=== PATIENT | male | born 1980 | race African-American/Black ===

== ENCOUNTER 2017-06-19 09:47 | Inpatient (IN) | payer OTHER ==
[~2017-06-19] VITALS: Ht 170.2 cm; Wt 90.9 kg
[2017-06-19 10:26] LABS: CHLORIDE 83 mEq/L (99-109); POTASSIUM 2.5 mEq/L (3.7-5.4); SODIUM 130 mEq/L (136-147); WHITE BLOOD COUNT 32.7 K/uL (4.1-10.2)
[2017-06-19 10:28] LABS: GLUCOSE 99 mg/dL (70-99)
[2017-06-19 10:29] LABS: ANION GAP 20 MEQ/L (2-14)
[2017-06-19 10:31] LABS: ALKALINE PHOSPHATASE 99 IU/L (3-129)
[2017-06-19 10:32] LABS: GFR ESTIMATE (CALCULATED) 6 mL/min/
[2017-06-19 10:35] LABS: UREA NITROGEN (BUN) 103 mg/dL (9-23)
[2017-06-19 10:39] LABS: TROP-I INTERPRETATION NEGATIVE; TROPONIN-I 0.15 ng/mL (0.0-0.30)
[2017-06-19 10:57] LABS: HEMATOCRIT 25.7 % (38.0-50.0); MCH 32.9 PG (29.0-34.0); MCHC 37.7 G/DL (30.0-36.0); MCV 87.1 FL (86-99); MEAN PLAT.VOLUME 12.2 uM^3 (9.0-12.4); NRBC (%) 0.4 /100 WBC (0-0); PLATELET COUNT 207 K/uL (156-360); RBC DIS.WIDTH-CV 14.8 % (11.8-14.6); RBC DIS.WIDTH-SD 46.5 % (39-53); RED BLOOD COUNT 2.95 M/uL (4.00-5.50)
[2017-06-19 11:03] LABS: ANISOCYTOSIS 2+; BASOPHIL COUNT 0.2 K/uL (0-0.1); EOSINOPHIL (%) 0.3 % (0-5); EOSINOPHIL COUNT 0.1 K/uL (0-0.3); IMM.RETIC FRACTION 38.6 % (3-19); IMMATURE GRANULOCYTE COUNT 0.3 K/uL; INSTRUMENT ABS NEUTROPHIL CT 27.2 K/uL; LYMPHOCYTE COUNT 2.6 K/uL (1.0-2.8); MACROCYTES 2+; MONOCYTE (%) 7.2 % (3-12); MONOCYTE COUNT 2.4 K/uL (0-0.8); NEUTROPHIL (%) 82.9 % (45-76); NEUTROPHIL COUNT 27.2 K/uL (1.8-6.4); POLYCHROMASIA 3+; RETIC HGB EQUIVALENT 39.2 (28-36); RETICULOCYTE COUNT 11.1 % (0.5-1.8); SCHISTOCYTES 1+; STOMATOCYTES 1+; TARGET CELLS 2+
[2017-06-19 11:21] LABS: CREATINE KINASE 168 IU/L (1-294)
[2017-06-19 12:13] LABS: AMPHETAMINE NEGATIVE (500 ng/mL); BARBITURATES NEGATIVE (200 ng/mL); BENZODIAZEPINES NEGATIVE (150 ng/mL); COCAINE NEGATIVE (150 ng/mL); INTERNAL CONTROLS VALID? YES; METHADONE NEGATIVE (200 ng/mL); METHAMPHETAMINE NEGATIVE (500 ng/mL); OPIATES (MORPHINE) NEGATIVE (100 ng/mL); OXYCODONE NEGATIVE (100 ng/mL); PHENCYCLIDINE NEGATIVE (25 ng/mL); PROPOXYPHENE NEGATIVE (300 ng/mL); THC CANNABINOIDS NEGATIVE (50 ng/mL); TRICYCLIC ANTIDEPRESSANTS NEGATIVE (300 ng/mL)
[2017-06-19 13:21] LABS: URIC ACID 13.5 mg/dL (3.1-9.2)
[2017-06-19 14:15] LABS: ADD MIUA? YES; BILIRUBIN NEGATIVE; BLOOD MODERATE; COLOR YELLOW ((YELLOW)); GLUCOSE (STRIP) 50; KETONES NEGATIVE; LEUKOCYTES NEGATIVE; NITRITE NEGATIVE; PROTEIN (STRIP) >=500; UROBILINOGEN 0.2 MG/DL (0.2-1.0)
[2017-06-19 14:28] LABS: BACTERIA NONE SEEN /HPF; EPITHELIAL CELLS NONE SEEN /HPF; MUCUS NONE SEEN /LPF; RED BLOOD CELLS 0-5 /HPF (0-5); WHITE BLOOD CELLS 0-5 /HPF (0-5)
[2017-06-19 14:29] LABS: AMORPHOUS URATES CRYSTALS 1+
[2017-06-19 14:50] LABS: UR CREATININE CONCENTRATION 73.5 MG/DL
[2017-06-19 16:43] LABS: TROP-I INTERPRETATION NEGATIVE; TROPONIN-I 0.14 ng/mL (0.0-0.30)
[2017-06-19 19:00] VITALS: BP 136/82
[2017-06-19 20:01] LABS: ANION GAP 18 MEQ/L (2-14); CHLORIDE 80 MEQ/L (99-109); POTASSIUM 2.6 MEQ/L (3.7-5.4); SAMPLE HEMOLYSIS CHECK 0; SAMPLE ICTERIC CHECK 0; SAMPLE LIPEMIA CHECK 0; SODIUM 126 MEQ/L (136-147)
[2017-06-19 20:11] LABS: GFR ESTIMATE (CALCULATED) 6 mL/min/
[2017-06-19 20:12] LABS: GLUCOSE 171 mg/dL (70-99); UREA NITROGEN (BUN) 102 mg/dL (9-23)
[2017-06-19 22:12] LABS: TROP-I INTERPRETATION NEGATIVE; TROPONIN-I 0.12 ng/mL (0.0-0.30)
[2017-06-20 00:30] VITALS: BP 132/81
[2017-06-20 03:20] VITALS: BP 138/82
[2017-06-20 05:31] LABS: CHLORIDE 83 mEq/L (99-109); POTASSIUM 2.9 mEq/L (3.7-5.4); SODIUM 126 mEq/L (136-147)
[2017-06-20 05:32] LABS: MAGNESIUM 2.8 mg/dL (1.3-2.7)
[2017-06-20 05:35] LABS: ANION GAP 20 MEQ/L (2-14)
[2017-06-20 05:37] LABS: GFR ESTIMATE (CALCULATED) 5 mL/min/
[2017-06-20 05:40] LABS: GLUCOSE 104 mg/dL (70-99); UREA NITROGEN (BUN) 102 mg/dL (9-23)
[2017-06-20 06:05] LABS: BASOPHIL COUNT 0.2 K/uL (0-0.1); EOSINOPHIL (%) 2.8 % (0-5); EOSINOPHIL COUNT 0.8 K/uL (0-0.3); HEMATOCRIT 19.8 % (38.0-50.0); IMMATURE GRANULOCYTE (%) 0.8 % (0.0-0.7); IMMATURE GRANULOCYTE COUNT 0.2 K/uL; INSTRUMENT ABS NEUTROPHIL CT 21.6 K/uL; LYMPHOCYTE COUNT 3.4 K/uL (1.0-2.8); MCH 32.8 PG (29.0-34.0); MCHC 37.9 G/DL (30.0-36.0); MCV 86.5 FL (86-99); MEAN PLAT.VOLUME 12.9 uM^3 (9.0-12.4); MONOCYTE (%) 8.5 % (3-12); MONOCYTE COUNT 2.5 K/uL (0-0.8); NEUTROPHIL (%) 75.5 % (45-76); NEUTROPHIL COUNT 21.6 K/uL (1.8-6.4); NRBC (%) 0.4 /100 WBC (0-0); PLATELET COUNT 186 K/uL (156-360); RBC DIS.WIDTH-CV 14.9 % (11.8-14.6); RED BLOOD COUNT 2.29 M/uL (4.00-5.50); WHITE BLOOD COUNT 28.7 K/uL (4.1-10.2)
[2017-06-20 09:00] VITALS: BP 142/88
[2017-06-20 12:00] VITALS: BP 140/85
[2017-06-20 12:32] LABS: HBSG INDEX 0.23
[2017-06-20 12:33] LABS: ANTI-HEPATITIS A VIRUS (IGM) Nonreactive; HAV INDEX 0.13
[2017-06-20 12:34] LABS: ANTI-HEPATITIS B CORE (IGM) Nonreactive; HBC IgM INDEX 0.07; HIV INDEX 0.15; HIV-1/2 AB/AG COMBO Nonreactive
[2017-06-20 16:00] VITALS: BP 145/87
[2017-06-20 19:45] VITALS: BP 170/89
[2017-06-20 20:18] LABS: SAMPLE HEMOLYSIS CHECK 0; SAMPLE ICTERIC CHECK 0; SAMPLE LIPEMIA CHECK 0
[2017-06-20 20:34] LABS: ANION GAP 18 MEQ/L (2-14); CHLORIDE 83 MEQ/L (99-109); GFR ESTIMATE (CALCULATED) 6 mL/min/; GLUCOSE 99 mg/dL (70-99); SODIUM 122 MEQ/L (136-147); UREA NITROGEN (BUN) 96 mg/dL (9-23)
[2017-06-20 20:35] LABS: POTASSIUM 3.6 MEQ/L (3.7-5.4)
[2017-06-21] VITALS (8 sets, daily range): BP systolic 133–190; BP diastolic 79–120
[2017-06-21 05:11] LABS: CHLORIDE 85 mEq/L (99-109); POTASSIUM 3.8 mEq/L (3.7-5.4); SODIUM 122 mEq/L (136-147)
[2017-06-21 05:13] LABS: GLUCOSE 102 mg/dL (70-99)
[2017-06-21 05:14] LABS: ANION GAP 17 MEQ/L (2-14)
[2017-06-21 05:17] LABS: GFR ESTIMATE (CALCULATED) 6 mL/min/
[2017-06-21 05:36] LABS: UREA NITROGEN (BUN) 109 mg/dL (9-23)
[2017-06-21 05:49] LABS: BASOPHIL COUNT 0.1 K/uL (0-0.1); EOSINOPHIL (%) 0.5 % (0-5); EOSINOPHIL COUNT 0.2 K/uL (0-0.3); IMMATURE GRANULOCYTE COUNT 0.3 K/uL; INSTRUMENT ABS NEUTROPHIL CT 27.7 K/uL; LYMPHOCYTE COUNT 1.6 K/uL (1.0-2.8); MCH 33.7 PG (29.0-34.0); MCV 86.4 FL (86-99); MONOCYTE (%) 6.1 % (3-12); MONOCYTE COUNT 1.9 K/uL (0-0.8); NEUTROPHIL (%) 87.1 % (45-76); NEUTROPHIL COUNT 27.7 K/uL (1.8-6.4); NRBC (%) 0.3 /100 WBC (0-0); PLATELET COUNT 203 K/uL (156-360); RBC DIS.WIDTH-CV 14.9 % (11.8-14.6); RBC DIS.WIDTH-SD 46.1 % (39-53); RED BLOOD COUNT 2.43 M/uL (4.00-5.50)
[2017-06-21 05:55] LABS: WHITE BLOOD COUNT 31.8 K/uL (4.1-10.2)
[2017-06-21 07:49] LABS: INTACT PARATHYROID HORMONE 235 pg/mL (10-69)
[2017-06-21 09:44] LABS: UR CREATININE CONCENTRATION 66.4 MG/DL
[2017-06-22 05:03] VITALS: BP 163/100
[2017-06-22 05:39] LABS: BASOPHIL COUNT 0.2 K/uL (0-0.1); EOSINOPHIL (%) 0.3 % (0-5); EOSINOPHIL COUNT 0.1 K/uL (0-0.3); IMMATURE GRANULOCYTE (%) 1.1 % (0.0-0.7); IMMATURE GRANULOCYTE COUNT 0.4 K/uL; INSTRUMENT ABS NEUTROPHIL CT 27.9 K/uL; MEAN PLAT.VOLUME 12.1 uM^3 (9.0-12.4); MONOCYTE (%) 8.2 % (3-12); MONOCYTE COUNT 2.6 K/uL (0-0.8); NEUTROPHIL (%) 86.7 % (45-76); NEUTROPHIL COUNT 27.9 K/uL (1.8-6.4); PLATELET COUNT 178 K/uL (156-360)
[2017-06-22 05:48] LABS: HEMATOCRIT 20.1 % (38.0-50.0); MCH 32.3 PG (29.0-34.0); MCHC 36.8 G/DL (30.0-36.0); MCV 87.8 FL (86-99); NRBC (%) 0.7 /100 WBC (0-0); RBC DIS.WIDTH-CV 15.2 % (11.8-14.6); RED BLOOD COUNT 2.29 M/uL (4.00-5.50); WHITE BLOOD COUNT 32.2 K/uL (4.1-10.2)
[2017-06-22 05:59] LABS: ANION GAP 14 MEQ/L (2-14); CHLORIDE 87 MEQ/L (99-109); GFR ESTIMATE (CALCULATED) 7 mL/min/; GLUCOSE 105 mg/dL (70-99); POTASSIUM 3.9 MEQ/L (3.7-5.4); SAMPLE HEMOLYSIS CHECK 0; SAMPLE ICTERIC CHECK 0; SAMPLE LIPEMIA CHECK 0; SODIUM 125 MEQ/L (136-147); UREA NITROGEN (BUN) 77 mg/dL (9-23)
[2017-06-22 07:34] VITALS: BP 174/104
[2017-06-22 11:07] VITALS: BP 153/84
[2017-06-22 21:00] VITALS: BP 163/87
[2017-06-23] VITALS (7 sets, daily range): BP systolic 162–188; BP diastolic 80–117
[2017-06-23 06:27] LABS: C3 COMPLEMENT 121 MG/DL (58-170); C4 COMPLEMENT 35 MG/DL (10-40)
[2017-06-23 07:51] LABS: BASOPHIL COUNT 0.2 K/uL (0-0.1); EOSINOPHIL (%) 1.6 % (0-5); EOSINOPHIL COUNT 0.5 K/uL (0-0.3); IMMATURE GRANULOCYTE (%) 0.9 % (0.0-0.7); IMMATURE GRANULOCYTE COUNT 0.2 K/uL; INSTRUMENT ABS NEUTROPHIL CT 23.1 K/uL; LYMPHOCYTE COUNT 1.3 K/uL (1.0-2.8); MCH 31.7 PG (29.0-34.0); MCHC 36.7 G/DL (30.0-36.0); MCV 86.4 FL (86-99); MEAN PLAT.VOLUME 12.6 uM^3 (9.0-12.4); MONOCYTE (%) 9.4 % (3-12); MONOCYTE COUNT 2.6 K/uL (0-0.8); NEUTROPHIL (%) 82.7 % (45-76); NEUTROPHIL COUNT 23.1 K/uL (1.8-6.4); NRBC (%) 0.9 /100 WBC (0-0); PLATELET COUNT 218 K/uL (156-360); RBC DIS.WIDTH-CV 14.7 % (11.8-14.6); RBC DIS.WIDTH-SD 46.2 % (39-53); RED BLOOD COUNT 2.43 M/uL (4.00-5.50); WHITE BLOOD COUNT 27.9 K/uL (4.1-10.2)
[2017-06-23 08:01] LABS: ANION GAP 11 MEQ/L (2-14); CHLORIDE 90 MEQ/L (99-109); POTASSIUM 4.2 MEQ/L (3.7-5.4); SAMPLE HEMOLYSIS CHECK 0; SAMPLE ICTERIC CHECK 0; SAMPLE LIPEMIA CHECK 0; SODIUM 128 MEQ/L (136-147)
[2017-06-23 08:07] LABS: GFR ESTIMATE (CALCULATED) 9 mL/min/; GLUCOSE 108 mg/dL (70-99); UREA NITROGEN (BUN) 68 mg/dL (9-23)
[2017-06-23 14:40] LABS: Neutrophil Cytoplasmic Aby Negative (Negative)
[2017-06-24 03:30] VITALS: BP 144/93
[2017-06-24 05:55] VITALS: BP 185/108
[2017-06-24 06:13] LABS: BASOPHIL COUNT 0.2 K/uL (0-0.1); EOSINOPHIL (%) 3.5 % (0-5); EOSINOPHIL COUNT 0.9 K/uL (0-0.3); HEMATOCRIT 26.4 % (38.0-50.0); IMMATURE GRANULOCYTE (%) 1.1 % (0.0-0.7); IMMATURE GRANULOCYTE COUNT 0.3 K/uL; INSTRUMENT ABS NEUTROPHIL CT 20.6 K/uL; LYMPHOCYTE COUNT 1.9 K/uL (1.0-2.8); MCH 31.8 PG (29.0-34.0); MCHC 37.1 G/DL (30.0-36.0); MCV 85.7 FL (86-99); MEAN PLAT.VOLUME 12.9 uM^3 (9.0-12.4); MONOCYTE (%) 10.3 % (3-12); MONOCYTE COUNT 2.7 K/uL (0-0.8); NEUTROPHIL (%) 77.4 % (45-76); NEUTROPHIL COUNT 20.6 K/uL (1.8-6.4); NRBC (%) 0.8 /100 WBC (0-0); PLATELET COUNT 273 K/uL (156-360); RBC DIS.WIDTH-CV 16.1 % (11.8-14.6); RBC DIS.WIDTH-SD 49.4 % (39-53); RED BLOOD COUNT 3.08 M/uL (4.00-5.50); WHITE BLOOD COUNT 26.6 K/uL (4.1-10.2)
[2017-06-24 06:46] LABS: ALKALINE PHOSPHATASE 130 IU/L (3-129); ANION GAP 17 MEQ/L (2-14); CHLORIDE 93 MEQ/L (99-109); GFR ESTIMATE (CALCULATED) 12 mL/min/; GLUCOSE 93 mg/dL (70-99); POTASSIUM 4.7 MEQ/L (3.7-5.4); SAMPLE HEMOLYSIS CHECK 0; SAMPLE ICTERIC CHECK 0; SAMPLE LIPEMIA CHECK 0; SODIUM 133 MEQ/L (136-147); TOTAL BILIRUBIN 1.1 MG/DL (0.0-1.0); UREA NITROGEN (BUN) 65 mg/dL (9-23)
[2017-06-24 08:32] VITALS: BP 187/116
[2017-06-24 12:07] VITALS: BP 178/110
[2017-06-24] MEDS ORDERED: NIFEDIPINE ER30 MG PO (14:57)
[2017-06-24] MEDS ORDERED: DUONEB 2.5-0.5 M3 ML AEROSOL (14:57)
[2017-06-24] MEDS ORDERED: LABETALOL HCL100 MG PO (14:57)
[2017-06-24] MEDS ORDERED: ALLOPURINOL100 MG PO (14:58)
[2017-06-24] MEDS ORDERED: CEFTRIAXONE2 G1 IV (15:00)
[2017-06-24] MEDS ORDERED: LABETALOL H5 MG/1 M1 IV (15:01)
[2017-06-24] MEDS ORDERED: CALCIUM ACETAT667 MG PO (15:01)
[2017-06-24] MEDS ORDERED: ARANESP100 MCG/0. IV (15:01)
[2017-06-24] MEDS ORDERED: DILAUDID1 MG/ML IV (15:01)
[2017-06-24] MEDS ORDERED: HYDROMORPHONE HC2 MG PO (15:01)
[2017-06-24] MEDS ORDERED: POLYETHYLENE GL17 GM PO (15:02)
[2017-06-24] MEDS ORDERED: HEPARIN SO25000 UNIT IV (15:02)
[2017-06-24] MEDS ORDERED: DOCUSATE SODIU100 MG PO (15:02)
[2017-06-24 16:30] VITALS: BP 184/111
== END 2017-06-24 18:57 | disposition short-term general hospital (02) | DRG 682 ==
LOC: EME 09:47 → EDOF 14:06 → 4EAST 14:06 → ENRESERV 14:07 → 4EAST 15:45 → ENPENDDIS 06-24 18:00 → 4EAST 06-24 18:57
PROVIDERS: Emergency Medicine; Hospitalist; Internal Medicine; Internal Medicine Medical Oncology; Internal Medicine Nephrology
PROC: 02HV33Z Insertion of Infusion Device into Superior Vena Cava, Percutaneous Approach (ICD-10-PCS; principal; 2017-06-21)
PROC: 5A1D70Z Performance of Urinary Filtration, Intermittent, Less than 6 Hours Per Day (ICD-10-PCS; 2017-06-21)
PROC: 30233N1 Transfusion of Nonautologous Red Blood Cells into Peripheral Vein, Percutaneous Approach (ICD-10-PCS; 2017-06-22)
DX: N17.9 Acute kidney failure, unspecified (principal); J96.01 Acute respiratory failure with hypoxia; J18.9 Pneumonia, unspecified organism; D57.219 Sickle-cell/Hb-C disease with crisis, unspecified; I12.0 Hypertensive chronic kidney disease with stage 5 chronic kidney disease or end stage renal disease; I16.1 Hypertensive emergency; D63.1 Anemia in chronic kidney disease; E83.39 Other disorders of phosphorus metabolism; E87.1 Hypo-osmolality and hyponatremia; E87.6 Hypokalemia; E87.70 Fluid overload, unspecified; R94.31 Abnormal electrocardiogram [ECG] [EKG]; K59.00 Constipation, unspecified; D72.823 Leukemoid reaction; M79.606 Pain in leg, unspecified; R00.0 Tachycardia, unspecified; R07.89 Other chest pain; Z82.49 Family history of ischemic heart disease and other diseases of the circulatory system
CPT/HCPCS: 71010; 71020; 74176; 76770; 80048; 80048 91; 80053; 80069; 80074; 81003; 81050; 82088 90; 82550; 82570; 82575; 83520 90; 83735; 83880; 83970; 84100; 84132 91; 84145 90; 84156; 84244 90; 84443; 84484; 84550; 85025; 85045; 85379; 85730; 86021 90; 86038; 86160; 86703; 86850; 86900; 86901; 86920; 87040; 87077; 87186; 87493; 87801; 89190; 93005; 93306; 93970; 93975; 94640; 94640 76; 94799; 99202; 99281; 99285; C1752; G0103; J0360; J0696; J0881; J1170; J1644; J1940; J2997; J7030; J7050; P9016; P9040; S0028

== ENCOUNTER 2017-11-14 12:48 | Day surgery (SDC) | payer OTHER ==
[~2017-11-14] VITALS: Ht 170.2 cm; Wt 90.7 kg
[~2017-11-14 12:48] MED LIST: ALLOPURINOL100 MG PO; ARANESP100 MCG/0. IV; CALCIUM ACETAT667 MG PO; CARVEDILOL25 MG PO; CEFTRIAXONE2 G1 IV; COZAAR100 MG PO; DILAUDID1 MG/ML IV; DOCUSATE SODIU100 MG PO; DUONEB 2.5-0.5 M3 ML AEROSOL; HEPARIN SO25000 UNIT IV; HYDROMORPHONE HC2 MG PO; LABETALOL H5 MG/1 M1 IV; LABETALOL HCL100 MG PO; NIFEDIPINE ER30 MG PO; NIFEDIPINE ER60 MG PO; POLYETHYLENE GL17 GM PO; RENAPLEX-D TAB1 EACH PO; RENVELA800 MG PO
[2017-11-14 13:13] VITALS: BP 124/69
[2017-11-14 13:21] LABS: HEMATOCRIT 29.6 % (38.0-50.0); HEMOGLOBIN 10.8 G/DL (12.5-16.6); MCHC 36.5 G/DL (30.0-36.0); MCV 93.1 FL (86-99); NRBC (%) 0.5 /100 WBC (0-0); PLATELET COUNT 308 K/uL (156-360); RBC DIS.WIDTH-CV 17.2 % (11.8-14.6); RBC DIS.WIDTH-SD 58.4 % (39-53); RED BLOOD COUNT 3.18 M/uL (4.00-5.50)
[2017-11-14 13:45] LABS: CHLORIDE 106 MEQ/L (99-109); CREATININE 3.9 MG/DL (0.6-1.3); GFR ESTIMATE (CALCULATED) 23 mL/min/ (58.99-99999); GLUCOSE 86 mg/dL (70-99); POTASSIUM 4.7 MEQ/L (3.7-5.4); SODIUM 140 MEQ/L (136-147); UREA NITROGEN (BUN) 33 mg/dL (9-23)
[2017-11-14 19:57] VITALS: BP 130/72
[2017-11-14 20:22] VITALS: BP 120/74
== END 2017-11-14 20:33 | disposition home or self-care (01) ==
LOC: SDC 12:48
PROVIDERS: Surgery
PROC: 03180JD Bypass Left Brachial Artery to Upper Arm Vein with Synthetic Substitute, Open Approach (ICD-10-PCS; principal; 2017-11-14)
DX: I12.0 Hypertensive chronic kidney disease with stage 5 chronic kidney disease or end stage renal disease (principal); N18.6 End stage renal disease; D57.1 Sickle-cell disease without crisis
CPT/HCPCS: 80048; 85027; 87641; C1768; J0690; J1644; J1885; J2250; J2405; J2720; J3010; S0020

== ENCOUNTER 2017-12-12 13:16 | Day surgery (SDC) | payer OTHER ==
[~2017-12-12] VITALS: Ht 170.2 cm; Wt 90.7 kg
[2017-12-12 13:43] VITALS: BP 122/68
[2017-12-12 14:02] LABS: HEMATOCRIT 31.4 % (38.0-50.0); HEMOGLOBIN 11.5 G/DL (12.5-16.6); MCH 33.6 PG (29.0-34.0); MCHC 36.6 G/DL (30.0-36.0); MCV 91.8 FL (86-99); NRBC (%) 1.1 /100 WBC (0-0); RBC DIS.WIDTH-CV 17.3 % (11.8-14.6); RBC DIS.WIDTH-SD 58.2 % (39-53); RED BLOOD COUNT 3.42 M/uL (4.00-5.50); WHITE BLOOD COUNT 14.8 K/uL (4.1-10.2)
[2017-12-12 14:11] LABS: CHLORIDE 102 MEQ/L (99-109); CREATININE 4.6 MG/DL (0.6-1.3); GFR ESTIMATE (CALCULATED) 19 mL/min/ (58.99-99999); GLUCOSE 100 mg/dL (70-99); POTASSIUM 4.9 MEQ/L (3.7-5.4); SODIUM 136 MEQ/L (136-147); UREA NITROGEN (BUN) 31 mg/dL (9-23)
[2017-12-12 14:36] LABS: PLAT.SUFFICIENCY ADEQUATE; PLATELET COUNT 337 K/uL (156-360)
[2017-12-12 18:20] VITALS: BP 111/64
[2017-12-12 18:44] VITALS: BP 113/62
== END 2017-12-12 18:45 | disposition home or self-care (01) ==
LOC: SDC 13:16
PROVIDERS: Surgery
PROC: 05WY0JZ Revision of Synthetic Substitute in Upper Vein, Open Approach (ICD-10-PCS; principal; 2017-12-12)
DX: T82.898A Other specified complication of vascular prosthetic devices, implants and grafts, initial encounter (principal); Y83.2 Surgical operation with anastomosis, bypass or graft as the cause of abnormal reaction of the patient, or of later complication, without mention of misadventure at the time of the procedure; I12.0 Hypertensive chronic kidney disease with stage 5 chronic kidney disease or end stage renal disease; N18.6 End stage renal disease; D57.1 Sickle-cell disease without crisis
CPT/HCPCS: 80048; 85027; 87641; C1768; C2628; J0690; J1170; J1644; J2250; J2720; J3010; S0020

== ENCOUNTER 2018-01-02 08:25 | Day surgery (SDC) | payer OTHER ==
[~2018-01-02] VITALS: Ht 170.2 cm; Wt 90.7 kg
== END 2018-01-02 11:54 | disposition home or self-care (01) ==
LOC: CATH 08:25
DX: T82.858A Stenosis of other vascular prosthetic devices, implants and grafts, initial encounter (principal); Y83.2 Surgical operation with anastomosis, bypass or graft as the cause of abnormal reaction of the patient, or of later complication, without mention of misadventure at the time of the procedure; I12.0 Hypertensive chronic kidney disease with stage 5 chronic kidney disease or end stage renal disease; N18.6 End stage renal disease; Z99.2 Dependence on renal dialysis; D57.1 Sickle-cell disease without crisis
CPT/HCPCS: 87641; C1725; C1769; C1894; J1200; J1644; J2250; J3010

== ENCOUNTER → 2018-01-18 | Outpatient (CLI) | payer OTHER ==
[~2018-01-18] MED LIST changes: +NEURONTIN100 MG PO
== END | disposition home or self-care (01) ==
LOC: AMB 10:30
PROC: 05PY03Z Removal of Infusion Device from Upper Vein, Open Approach (ICD-10-PCS; principal; 2018-01-18)
DX: Z45.2 Encounter for adjustment and management of vascular access device (principal); N18.6 End stage renal disease

== ENCOUNTER 2018-03-14 10:19 | Day surgery (SDC) | payer OTHER | END 2018-03-14 16:35 | disposition home or self-care (01) | LOC: CATH 10:19 | DX: T82.868A Thrombosis due to vascular prosthetic devices, implants and grafts, initial encounter (principal); Y83.2 Surgical operation with anastomosis, bypass or graft as the cause of abnormal reaction of the patient, or of later complication, without mention of misadventure at the time of the procedure; I12.0 Hypertensive chronic kidney disease with stage 5 chronic kidney disease or end stage renal disease; N18.6 End stage renal disease; Z99.2 Dependence on renal dialysis | CPT/HCPCS: 87641; C1725; C1757; C1769; C1887; C1894; J0690; J1644; J2250; J3010; S0020 ==

== ENCOUNTER 2018-03-15 08:59 | Day surgery (SDC) | payer OTHER | END 2018-03-15 13:13 | disposition home or self-care (01) | LOC: CATH 08:59 | DX: T82.868A Thrombosis due to vascular prosthetic devices, implants and grafts, initial encounter (principal); Y83.2 Surgical operation with anastomosis, bypass or graft as the cause of abnormal reaction of the patient, or of later complication, without mention of misadventure at the time of the procedure; N18.6 End stage renal disease; Z99.2 Dependence on renal dialysis; D57.1 Sickle-cell disease without crisis | CPT/HCPCS: 87641; C1725; C1757; C1769; C1894; C2628; J0690; J1644; J2250; J3010; S0020 ==